=== PATIENT | female | born 1985 | race Caucasian/White ===

== ENCOUNTER 2016-05-27 18:49 | Emergency (ER) | payer SELFPAY ==
[2016-05-27 19:07] VITALS: BP 125/67
[2016-05-27] MEDS ORDERED: ACETAMINOPHEN 325 MG TABLET PO ONE (19:14)
[2016-05-27] MEDS ORDERED: ONDANSETRON 4 MG TAB.RAPDIS PO ONE (19:14)
--- NOTE | 2016-05-27 19:18 | ER Document Report ---
ED Medical Screen (RME) - General Chief Complaint: Fever Stated Complaint: FEVER,SORE THROAT,DIARRHEA Time seen by provider: 19:15 Mode of Arrival: Ambulatory Information source: Patient Notes: 30-year-old female developed sore throat fever nausea and diarrhea yesterday. She has exudative tonsillitis on triage exam. Temperature is 103 which I will treat with Tylenol. She took 800 mg ibuprofen at home 2:00 pm. TRAVEL OUTSIDE OF THE [place] IN LAST 30 DAYS: No - Related Data Allergies/Adverse Reactions: latex [Latex] Allergy (Verified 08/08/14 17:45) skin rash Past Medical History - Past Medical History Cardiac Medical History: Denies: Hx Coronary Artery Disease, Hx Heart Attack, Hx Hypertension Pulmonary Medical History: Denies: Hx Asthma, Hx Bronchitis, Hx COPD, Hx Pneumonia Neurological Medical History: Denies: Hx Cerebrovascular Accident, Hx Seizures Renal/ Medical History: Reports: Hx Ovarian Cysts Musculoskeltal Medical History: Denies Hx Arthritis Past Surgical History: Reports: Hx Section - Immunizations Hx Diphtheria, Pertussis, Tetanus Vaccination: Yes Physical Exam - Vital signs Vitals: Temp Pulse Resp BP Pulse Ox 103.0 F H 106 H 18 125/67 99 05/27/16 19:06 05/27/16 19:06 05/27/16 19:06 05/27/16 19:06 05/27/16 19:06 Course - Vital Signs Vital signs: Temp Pulse Resp BP Pulse Ox 103.0 F H 106 H 18 125/67 99 05/27/16 19:06 05/27/16 19:06 05/27/16 19:06 05/27/16 19:06 05/27/16 19:06
--- NOTE | 2016-05-27 20:06 | ER Document Report ---
HPI - HPI Patient complains to provider of: sore throat Onset: Yesterday Onset/Duration: Gradual Quality of pain: Achy Pain Level: 3 Context: Patient presents complaining of sore throat fever, nausea and diarrhea that started yesterday. Patient is concerned that she is dehydrated. Associated Symptoms: Diarrhea, Earache, Fever, Nausea, Sore throat. denies: Nonproductive cough, Vomiting Exacerbated by: Denies Relieved by: Denies Similar symptoms previously: No Recently seen / treated by doctor: No - ROS ROS below otherwise negative: Yes Systems Reviewed and Negative: Yes All other systems reviewed and negative - CONSTITUTIONAL Constitutional: REPORTS: Fever, Chills - EENT EENT: REPORTS: Sore Throat, Ear Pain - NEURO Neurology: DENIES: Headache - RESPIRATORY Respiratory: DENIES: Coughing - GASTROINTESTINAL Gastrointestinal: REPORTS: Nausea, Diarrhea. DENIES: Abdominal Pain, Patient vomiting - URINARY Urinary: DENIES: Dysuria - REPRODUCTIVE Reproductive: DENIES: : - MUSCULOSKELETAL Musculoskeletal: DENIES: Extremity pain, Back Pain - DERM Skin Color: Normal, [place] Skin Problems: None Past Medical History - General Information source: Patient - Social History Smoking Status: Never Smoker Frequency of alcohol use: None Drug Abuse: None Occupation: none Lives with: Family Family History: Reviewed & Not Pertinent Patient has suicidal ideation: No Patient has homicidal ideation: No - Past Medical History Cardiac Medical History: Denies: Hx Coronary Artery Disease, Hx Heart Attack, Hx Hypertension Pulmonary Medical History: Denies: Hx Asthma, Hx Bronchitis, Hx COPD, Hx Pneumonia Neurological Medical History: Denies: Hx Cerebrovascular Accident, Hx Seizures Renal/ Medical History: Reports: Hx Ovarian Cysts Musculoskeltal Medical History: Denies Hx Arthritis Past Surgical History: Reports: Hx Section - Immunizations Hx Diphtheria, Pertussis, Tetanus Vaccination: Yes Vertical Provider Document - CONSTITUTIONAL Agree With Documented VS: Yes Exam Limitations: No Limitations General Appearance: WD/WN, No Apparent Distress - INFECTION CONTROL TRAVEL OUTSIDE OF THE [place] IN LAST 30 DAYS: No - HEENT HEENT: Atraumatic, Normocephalic, Pharyngeal Exudate, Pharyngeal Tenderness, Pharyngeal Erythema. negative: Tympanic Membrane Red, Tympanic Membrane Bulging - NECK Neck: Lymphadenopathy-Left, Lymphadenopathy-Right - RESPIRATORY Respiratory: Breath Sounds Normal, No Respiratory Distress, Chest Non-Tender O2 Sat by Pulse Oximetry: 99 - CARDIOVASCULAR Cardiovascular: Regular Rate, Regular Rhythm, No Murmur - GI/ABDOMEN Gastrointestinal: Abdomen Soft, Abdomen Non-Tender - BACK Back: Normal Inspection. negative: CVA Tenderness-Right, CVA Tenderness-Left - MUSCULOSKELETAL/EXTREMETIES Musculoskeletal/Extremeties: MAEW - NEURO Level of Consciousness: Awake, Alert, Appropriate Motor/Sensory: No Motor Deficit - DERM Integumentary: Warm, Dry, No Rash Course - Vital Signs Vital signs: Temp Pulse Resp BP Pulse Ox 103.0 F H 106 H 18 125/67 99 05/27/16 19:06 05/27/16 19:06 05/27/16 19:06 05/27/16 19:06 05/27/16 19:06 Discharge - Discharge Clinical Impression: Tonsillitis, Nausea Fever Qualifiers: Fever type: unspecified Qualified Code(s): R50.9 - Fever, unspecified Condition: Stable Disposition: HOME, SELF-CARE Instructions: Tonsillitis ([facility]), Oral Narcotic Medication ([facility]), Fever ([facility]), Nausea or Vomiting, Nonspecific ([facility]), Antinausea Medication ([facility]), Penicillin V K ([facility]) Additional Instructions: Return immediately for any new or worsening symptoms Followup with your primary care provider, call tomorrow to make a followup appointment Prescriptions: Hydrocodone/Acetaminophen [[place] 5-325 Tablet] 1 each PO Q4 PRN #15 tablet PRN Reason: Ondansetron HCl [Zofran 4 mg Tablet] 1 - 2 tab PO Q6 PRN #15 tablet PRN Reason: Penicillin V Potassium [Penicillin Vk 500 mg Tablet] 500 mg PO BID #20 tablet Referrals: [facility] [Provider Group] - Follow up as needed
[2016-05-27 20:34] LABS: APPEARANCE,URINE CLEAR; BILIRUBIN,URINE NEGATIVE (NEGATIVE); GLUCOSE, URINE NEGATIVE (NEGATIVE); KETONES,URINE NEGATIVE (NEGATIVE); LEUKOCYTE ESTERASE,URINE NEGATIVE (NEGATIVE); NITRITE,URINE NEGATIVE (NEGATIVE); PROTEIN,URINE NEGATIVE (NEGATIVE); URINE SPECIFIC GRAVITY 1.008; UROBILINOGEN,URINE NEGATIVE mg/dL (<2.0)
== END 2016-05-27 21:05 | disposition home or self-care (01) ==
LOC: ER 18:49
DX: J03.90 Acute tonsillitis, unspecified (principal); R50.9 Fever, unspecified; R11.0 Nausea; R19.7 Diarrhea, unspecified
CPT/HCPCS: 99283; 81001; S0119

== ENCOUNTER 2017-02-24 18:22 | Emergency (ER) | payer MEDICAID ==
--- NOTE | 2017-02-24 19:53 | RADIOLOGY REPORT (SQ) ---
EXAM DESCRIPTION: HAND RIGHT 3 VIEWS COMPLETED DATE/TIME: 02/24/2017 7:38 pm REASON FOR STUDY: rt 3rd digit pain COMPARISON: None. EXAM PARAMETERS: NUMBER OF VIEWS: Three views. TECHNIQUE: AP, lateral and oblique radiographic images acquired of the right hand. LIMITATIONS: None. FINDINGS: MINERALIZATION: Normal. BONES: 1 mm bony density at the ulnar aspect of the middle phalanx at the 3rd PIP joint.No other frac ture or dislocation. No worrisome bone lesions. JOINTS: No effusions. SOFT TISSUES: Mild soft tissue swelling. No foreign body. OTHER: No other significant finding. IMPRESSION: 1 mm bony density at the ulnar aspect of the middle phalanx at the 3rd PIP joint. TECHNICAL DOCUMENTATION: JOB ID: [id number] [employer]- All Rights Reserved
--- NOTE | 2017-02-24 20:02 | ER Document Report ---
HPI - HPI Patient complains to provider of: Right middle finger injury Onset: Just prior to arrival Onset/Duration: Sudden Quality of pain: Throbbing Severity: Severe Pain Level: 5 Context: Patient states that a metal door closed on the end of her right middle finger this evening. Associated Symptoms: None Exacerbated by: Movement Relieved by: Denies Similar symptoms previously: No Recently seen / treated by doctor: No - ROS ROS below otherwise negative: Yes Systems Reviewed and Negative: Yes All other systems reviewed and negative - CONSTITUTIONAL Constitutional: DENIES: Fever - EENT EENT: DENIES: Congestion - NEURO Neurology: DENIES: Headache - CARDIOVASCULAR Cardiovascular: DENIES: Chest pain - RESPIRATORY Respiratory: DENIES: Trouble Breathing - GASTROINTESTINAL Gastrointestinal: DENIES: Abdominal Pain - REPRODUCTIVE Reproductive: DENIES: : - MUSCULOSKELETAL Musculoskeletal: REPORTS: Extremity pain - Distal right middle finger - DERM Skin Color: Normal Skin Problems: Abrasion Past Medical History - General Information source: Patient - Social History Smoking Status: Never Smoker Chew tobacco use (# tins/day): Yes Frequency of alcohol use: None Drug Abuse: None Lives with: Family Family History: Reviewed & Not Pertinent Renal/ Medical History: Reports: Hx Ovarian Cysts Past Surgical History: Reports: Hx Section, Hx Cholecystectomy - Immunizations Hx Diphtheria, Pertussis, Tetanus Vaccination: Yes Vertical Provider Document - CONSTITUTIONAL Agree With Documented VS: Yes Exam Limitations: No Limitations General Appearance: WD/WN, Mild Distress Notes: pt tearful. Offered motrin as she is driving, pt declined. - INFECTION CONTROL TRAVEL OUTSIDE OF THE [place] IN LAST 30 DAYS: No - HEENT HEENT: Atraumatic, Normocephalic - RESPIRATORY Respiratory: Breath Sounds Normal, No Respiratory Distress O2 Sat by Pulse Oximetry: 99 - CARDIOVASCULAR Cardiovascular: Regular Rate, Regular Rhythm - MUSCULOSKELETAL/EXTREMETIES Musculoskeletal/Extremeties: Tender, Edema - distal right middle finger. - NEURO Level of Consciousness: Awake, Alert, Appropriate - DERM Integumentary: Warm, Dry Notes: bruising noted to distal right finger. + crack in acrylic nail noted. Course - Vital Signs Vital signs: Temp Pulse Resp BP Pulse Ox 99.1 F 80 16 120/73 99 02/24/17 18:35 02/24/17 18:35 02/24/17 18:35 02/24/17 18:35 10/10/17 18:35 Procedures - Immobilization Finger Pre-Proc Neuro Vasc Exam: Normal Immobilizer type: Finger splint (Static) Performed by: PCT Post-Proc Neuro Vasc Exam: Normal Alignment checked and good: Yes Discharge - Discharge Clinical Impression: Crushing injury of right middle finger Qualifiers: Encounter type: initial encounter Qualified Code(s): S67.192A - Crushing injury of right middle finger, initial encounter Condition: Good Disposition: HOME, SELF-CARE Additional Instructions: ice and elevated motrin as needed for pain keep splint on for protection follow up with your PCP for incidental finding on xray of 1mm density to right 3rd finger return as needed Prescriptions: Hydrocodone/Acetaminophen [[place] 5-325 mg Tablet] 1 tab PO PRN PRN #15 tablet PRN Reason:
[2017-02-24 20:31] VITALS: BP 117/61
== END 2017-02-24 20:33 | disposition home or self-care (01) ==
LOC: ER 18:22
DX: S67.192A Crushing injury of right middle finger, initial encounter (principal); W23.0XXA Caught, crushed, jammed, or pinched between moving objects, initial encounter; Z90.49 Acquired absence of other specified parts of digestive tract
CPT/HCPCS: 99283

== ENCOUNTER 2017-06-07 22:42 | Emergency (ER) | payer MEDICAID ==
--- NOTE | 2017-06-07 23:07 | ER Document Report ---
ED Medical Screen (RME) - General Chief Complaint: Chest Pain Stated Complaint: CHEST PAIN Time Seen by Provider: 06/07/17 23:06 Notes: 31-year-old female, chief complaint of chest pain, pain is in the center of her chest feels like it goes around to her back. Symptoms started 40 minutes ago. She reports the pain feels sharp. She denies nausea, shortness of breath, or any other associated symptoms. She denies trauma. She is currently on her menstrual cycle. Denies any daily medications or medical history. Denies personal or family history of blood clot, denies recent travel, surgery, lower extremity swelling. TRAVEL OUTSIDE OF THE [place] IN LAST 30 DAYS: No - Related Data Allergies/Adverse Reactions: latex [Latex] Allergy (Verified 02/24/17 18:33) skin rash Past Medical History - Past Medical History Cardiac Medical History: Denies: Hx Heart Attack, Hx Hypertension Pulmonary Medical History: Denies: Hx Asthma, Hx Bronchitis, Hx COPD, Hx Pneumonia Neurological Medical History: Denies: Hx Seizures Renal/ Medical History: Reports: Hx Ovarian Cysts. Denies: Hx Peritoneal Dialysis Musculoskeltal Medical History: Denies Hx Arthritis Past Surgical History: Reports: Hx Section, Hx Cholecystectomy - Immunizations Hx Diphtheria, Pertussis, Tetanus Vaccination: Yes Physical Exam - Vital signs Vitals: Temp Pulse Resp BP Pulse Ox 98.0 F 73 20 133/72 H 97 06/07/17 22:54 06/07/17 22:54 06/07/17 22:54 06/07/17 22:54 06/07/17 22:54 - General General appearance: Appears well In distress: None - Respiratory Respiratory status: No respiratory distress Chest status: Tender - Reproducible specific sharp tenderness with palpation of both sides of the sternum Breath sounds: Normal. No: Decreased air movement, Wheezing Course - Vital Signs Vital signs: Temp Pulse Resp BP Pulse Ox 98.0 F 73 20 133/72 H 97 06/07/17 22:54 06/07/17 22:54 06/07/17 22:54 06/07/17 22:54 06/07/17 22:54
--- NOTE | 2017-06-08 00:16 | RADIOLOGY REPORT (SQ) ---
EXAM DESCRIPTION: CHEST PA/LAT CLINICAL HISTORY: 31 years, Female, chest pain COMPARISON: None. FINDINGS: Normal lung volume, clear parenchyma, normal cardiac silhouette, and intact bony thorax. IMPRESSION: No acute cardiopulmonary findings.
--- NOTE | 2017-06-08 00:22 | ER Document Report ---
ED General - General Chief Complaint: Chest Pain Stated Complaint: CHEST PAIN Time Seen by Provider: 06/07/17 23:06 Notes: Patient is a 31-year-old female without past medical history, no prior cardiac history, no history of DVT or pulmonary embolus, no use of estrogen who presents with an episode of chest pain that started prior to arrival and has since resolved. She describes it as a pressure-like sensation in the center of her chest that did not radiate. She denies any associated shortness of breath, nausea, vomiting or diaphoresis. She states the pain is now mostly resolved. Nothing seemed to improve or worsen the pain when it was present. No history of similar symptoms in the past. She has not seen her primary care doctor regarding this pain. She denies any trauma to the chest. TRAVEL OUTSIDE OF THE [place] IN LAST 30 DAYS: No - Related Data Allergies/Adverse Reactions: latex [Latex] Allergy (Verified 02/24/17 18:33) skin rash Past Medical History - General Information source: Patient - Social History Smoking Status: Never Smoker Frequency of alcohol use: None Drug Abuse: None Lives with: Spouse/Significant other Family History: Reviewed & Not Pertinent Patient has suicidal ideation: No Patient has homicidal ideation: No - Past Medical History Cardiac Medical History: Denies: Hx Heart Attack, Hx Hypertension Pulmonary Medical History: Denies: Hx Asthma, Hx Bronchitis, Hx COPD, Hx Pneumonia Neurological Medical History: Denies: Hx Seizures Renal/ Medical History: Reports: Hx Ovarian Cysts. Denies: Hx Peritoneal Dialysis Musculoskeltal Medical History: Denies Hx Arthritis Past Surgical History: Reports: Hx Section, Hx Cholecystectomy - Immunizations Hx Diphtheria, Pertussis, Tetanus Vaccination: Yes Review of Systems - Review of Systems Notes: Constitutional: Negative for fever. HENT: Negative for sore throat. Eyes: Negative for visual changes. Cardiovascular: Positive for chest pain. Respiratory: Negative for shortness of breath. Gastrointestinal: Negative for abdominal pain, vomiting or diarrhea. Genitourinary: Negative for dysuria. Musculoskeletal: Negative for back pain. Skin: Negative for rash. Neurological: Negative for headaches, weakness or numbness. 10 point ROS negative except as marked above and in HPI. Physical Exam - Vital signs Vitals: Temp Pulse Resp BP Pulse Ox 98.0 F 73 20 133/72 H 97 06/07/17 22:54 06/07/17 22:54 06/07/17 22:54 06/07/17 22:54 06/07/17 22:54 Interpretation: Normal Notes: PHYSICAL EXAMINATION: GENERAL: Well-appearing, well-nourished and in no acute distress. HEAD: Atraumatic, normocephalic. EYES: Pupils equal round and reactive to light, extraocular movements intact, sclera anicteric, conjunctiva are normal. ENT: nares patent, oropharynx clear without exudates. Moist mucous membranes. NECK: Normal range of motion, supple without lymphadenopathy LUNGS: Breath sounds clear to auscultation bilaterally and equal. No wheezes rales or rhonchi. Chest wall: Reproducible pain on palpation of the central chest HEART: Regular rate and rhythm without murmurs ABDOMEN: Soft, nontender, normoactive bowel sounds. No guarding, no rebound. No masses appreciated. EXTREMITIES: Normal range of motion, no pitting or edema. No cyanosis. NEUROLOGICAL: No focal neurological deficits. Moves all extremities spontaneously and on command. PSYCH: Normal mood, normal affect. SKIN: Warm, Dry, normal turgor, no rashes or lesions noted. Course - Re-evaluation Re-evalutation: 06/08/17 00:20 Presentation of chest pain in an otherwise well appearing patient. Low clinical suspicion for ACS given clinical history, exam, EKG without ST elevations or depressions. PE also seems unlikely given clinical history, absence of tachycardia or dyspnea. Patient is PERC criteria negative. CXR without evidence of pneumothorax or pneumonia. No widened mediastinum. Aortic dissection also seems unlikely given history, symmetric pulses, CXR, and vitals. Suspect likely musculoskeletal versus esophageal origin of her pain today. At this time will discharge with return precautions and follow-up recommendations. Verbal discharge instructions given a the bedside and opportunity for questions given. Medication warnings reviewed. Patient is in agreement with this plan and has verbalized understanding of return precautions and the need for primary care follow-up in the next 24-72 hours. - Vital Signs Vital signs: Temp Pulse Resp BP Pulse Ox 98.6 F 77 20 127/76 H 98 06/08/17 00:40 06/08/17 00:40 06/08/17 00:40 06/08/17 00:40 06/08/17 00:40 - Diagnostic Test Radiology reviewed: Image reviewed, Reports reviewed Radiology results interpreted by me: 06/08/17 00:20 Chest x-ray: No acute infiltrate or pneumothorax - EKG Interpretation by Me Additional EKG results interpreted by me: 06/08/17 00:20 Normal sinus rhythm. Rate 73. No ST elevations or depressions. QTC is 424. Discharge - Discharge Clinical Impression: Chest pain Qualifiers: Chest pain type: unspecified Qualified Code(s): R07.9 - Chest pain, unspecified Condition: Good Disposition: HOME, SELF-CARE Additional Instructions: You were seen today for chest pain. The exact cause of your pain is unclear. However, based on your chest x-ray and EKG it does not appear that it is from an immediately life-threatening cause at this time. Although your testing here is normal is critical that you follow-up with your primary care physician for continued evaluation of this chest pain. Please return to emergency department immediately if you have worsening of your chest pain, shortness of breath, vomiting, become unable to exert yourself due to pain or difficulty breathing, you pass out, or have any pain that radiates into your arms, jaw, or back. Please also return if you have any additional symptoms that are concerning to you. Referrals: RAQUEL BROWN MD [Primary Care Provider] - Follow up as needed
[2017-06-08 00:45] VITALS: BP 127/76
--- NOTE | 2017-06-08 08:51 | EKG REPORT ---
SEVERITY:- NORMAL ECG - SINUS RHYTHM : Confirmed by: Neeraj Gaines 08-Jun-2017 08:51:08
== END 2017-06-08 00:40 | disposition home or self-care (01) ==
LOC: ER 22:42
DX: R07.9 Chest pain, unspecified (principal); Z90.49 Acquired absence of other specified parts of digestive tract; Z91.040 Latex allergy status
CPT/HCPCS: 71046; 93005; 93010; 99285

== ENCOUNTER 2018-03-18 23:02 | Emergency (ER) | payer MEDICAID ==
--- NOTE | 2018-03-19 00:55 | ER Document Report ---
ED General - General Chief Complaint: Rib Pain Stated Complaint: SWELLING UNDER LEFT RIBS/PAIN Time Seen by Provider: 03/19/18 00:46 Notes: Patient is a 32-year-old female presents with complaint of left lower rib pain. Says started 2 days ago. Hurts when she takes deep breath. States he feels as if it is swollen over her ribs. No rash. No fevers. No trauma. No injuries. She does not smoke. She is on control. No leg pain or leg swelling. No recent long road trips or travel. No other complaints at this time. TRAVEL OUTSIDE OF THE [place] IN LAST 30 DAYS: No - Related Data Allergies/Adverse Reactions: latex [Latex] Allergy (Verified 02/24/17 18:33) skin rash Past Medical History - Social History Smoking Status: Never Smoker Frequency of alcohol use: None Drug Abuse: None Family History: Reviewed & Not Pertinent - Past Medical History Cardiac Medical History: Denies: Hx Heart Attack, Hx Hypertension Pulmonary Medical History: Denies: Hx Asthma, Hx Bronchitis, Hx COPD, Hx Pneumonia Neurological Medical History: Denies: Hx Seizures Renal/ Medical History: Reports: Hx Ovarian Cysts. Denies: Hx Peritoneal Dialysis Musculoskeletal Medical History: Denies Hx Arthritis Past Surgical History: Reports: Hx Section, Hx Cholecystectomy - Immunizations Hx Diphtheria, Pertussis, Tetanus Vaccination: Yes Review of Systems - Review of Systems Notes: My Normal Review Basic REVIEW OF SYSTEMS: CONSTITUTIONAL : Denies fever, chills, or sweats. Denies recent illness. EENT: Denies eye, ear, throat, or mouth pain or symptoms. Denies nasal or sinus congestion. RESPIRATORY: Denies cough, cold, or chest congestion. Denies shortness of breath, difficulty breathing, or wheezing. GASTROINTESTINAL: Denies abdominal pain. Denies nausea, vomiting, or diarrhea. Denies constipation. Last BM: MUSCULOSKELETAL: Pain over left lower ribs. SKIN: Denies rash or skin lesions. NEUROLOGICAL: Denies altered mental status or loss of consciousness. ALL OTHER SYSTEMS REVIEWED AND NEGATIVE. Physical Exam - Vital signs Vitals: Temp Pulse Resp BP Pulse Ox 97.7 F 76 16 127/48 H 98 03/18/18 23:10 03/18/18 23:10 03/18/18 23:10 03/18/18 23:10 03/18/18 23:10 - Notes Notes: General Appearance: Well nourished, alert, cooperative, no acute distress, moderate obvious discomfort. Vitals: reviewed, See vital signs table. Head: no swelling or tenderness to the head Eyes: PERRL, EOMI, Conjuctiva clear Neck: Supple, no neck tenderness, No thyromegaly Chest wall: Some pain palpation that is directly over the costochondral junction of the left lower ribs. No pain to palpation of the abdomen below it. There is very mild swelling over the costochondral junction. No redness. Lungs: No wheezing, No rales, No rhonci, No accessory muscle use, good air exchange bilaterally. Heart: Normal rate, Regular rythm, No murmur, no rub Abdomen: Normal BS, soft, No rigidity, No abdominal tenderness, No guarding, no rebound, no abdominal masses, no organomegaly Extremities: good pulses in all extremities, no swelling or tenderness in the extremities, no edema. Skin: warm, dry, appropriate color, no rash Neuro: speech clear, oriented x 3, normal affect, responds appropriately to questions. Course - Re-evaluation Re-evalutation: 03/19/18 08:59 Patient symptoms are distant with that of probable costochondritis. All her pain is located right at the costochondral junction of her left lower ribs. Pain is easily reducible palpation. I do not suspect PE and that the pain is easily reproduced with palpation, she is not tachypneic, she is not tachycardic , she does not have any risk factors for PE. Informed take Naprosyn as prescribed. I encouraged her to follow-up with a doctor in a week for reevaluation. I encouraged her return to ER if she has worsening pain or feels unwell. Patient agrees with plan and will be discharged home. Dictation of this chart was performed using voice recognition software; therefore, there may be some unintended grammatical errors. - Vital Signs Vital signs: Temp Pulse Resp BP Pulse Ox 98.0 F 66 18 105/57 L 99 03/19/18 02:50 03/19/18 02:50 03/19/18 02:50 03/19/18 02:50 03/19/18 02:50 Discharge - Discharge Clinical Impression: Rib pain on left side Condition: Good Disposition: HOME, SELF-CARE Additional Instructions: Please follow up with a doctor in 1 week for revaluation. Please take the Naprosyn with food to help with pain and inflammation. Do not take other NSAID medicaitons such as Aspirin, Motrin, Ibuprofen, Aleve, or Advil when taking Naprosyn. It is okay to take Tylenol. I suspect your pain is related to inflammation or slight tearing of the cartilage at your rib cartilage junction. This can take sometimes a few weeks to fully resolve. Please avoid exertional activities. Please return to the ER if you have coughing up blood, difficulty breathing, or worsening pain. Prescriptions: Naproxen [Naprosyn 250 mg Tablet] 250 mg PO BID #20 tablet Referrals: RAQUEL BROWN MD [[facility] STAFF] - Follow up in 3-5 days
--- NOTE | 2018-03-19 02:07 | RADIOLOGY REPORT (SQ) ---
EXAM DESCRIPTION: XR RIBS UNILATERAL WITH CHEST COMPLETED DATE/TME: 03/19/2018 00:51 CLINICAL HISTORY: 32 years, Female, left rib pain COMPARISON: Chest x-ray 06/08/2017 NUMBER OF VIEWS: 4 TECHNIQUE: AP chest and 3 views of the left RIBS LIMITATIONS: None. FINDINGS: The heart size is normal. Lungs are clear. Negative for left rib fracture. Soft tissues are unremarkable IMPRESSION: Negative exam 2010 [employer]- All Rights Reserved
[2018-03-19 03:22] VITALS: BP 105/57
== END 2018-03-19 02:50 | disposition home or self-care (01) ==
LOC: ER 23:02
DX: R07.81 Pleurodynia (principal); Z91.040 Latex allergy status; Z79.3 Long term (current) use of hormonal contraceptives; Z90.49 Acquired absence of other specified parts of digestive tract
CPT/HCPCS: 99283

== ENCOUNTER 2018-05-24 20:02 | Emergency (ER) | payer MEDICAID ==
[2018-05-24 23:17] LABS: APPEARANCE,URINE CLOUDY; BILIRUBIN,URINE NEGATIVE (NEGATIVE); COLOR,URINE STRAW; GLUCOSE, URINE NEGATIVE (NEGATIVE); KETONES,URINE NEGATIVE (NEGATIVE); LEUKOCYTE ESTERASE,URINE LARGE (NEGATIVE); NITRITE,URINE NEGATIVE (NEGATIVE); PROTEIN,URINE NEGATIVE (NEGATIVE); URINE SPECIFIC GRAVITY 1.003; UROBILINOGEN,URINE NEGATIVE mg/dL (<2.0)
[2018-05-25] MEDS ORDERED: POLYMYXIN B SULFATE/TMP OPH SOLN 10 ML OD ONE (00:15)
[2018-05-25] MEDS ORDERED: LIDOCAINE 1% INJ-PF (10 MG/ML) 30 ML SDV INJ ONE (00:15)
[2018-05-25] MEDS ORDERED: CEFTRIAXONE INJ 1000 MG VIAL IM ONE (00:15)
--- NOTE | 2018-05-25 00:18 | ER Document Report ---
ED General - General Chief Complaint: Foreign Body in Eye Stated Complaint: POSSIBLE UTI,COLD Time Seen by Provider: 05/24/18 23:40 Notes: Patient is a 32-year-old female that comes to the emergency department for multiple complaints. She states she has burning and pain with urination, she has been congested with runny nose and occasional cough for approximately 1 week, this is worsened and now she has bilateral ear pain which has become s evere over the past day. She also states that earlier today she started getting irritation in her right eye, watery drainage from the eye, redness of the eye, and a foreign body sensation. She denies visual loss. She wears glasses but no contacts. She denies fever. LMP within the past month. TRAVEL OUTSIDE OF THE [place] IN LAST 30 DAYS: No - Related Data Allergies/Adverse Reactions: latex [Latex] Allergy (Verified 02/24/17 18:33) skin rash Past Medical History - General Information source: Patient - Social History Smoking Status: Never Smoker Chew tobacco use (# tins/day): No Frequency of alcohol use: Occasional Drug Abuse: None Lives with: Family Family History: Reviewed & Not Pertinent Patient has suicidal ideation: No Patient has homicidal ideation: No - Past Medical History Cardiac Medical History: Denies: Hx Heart Attack, Hx Hypertension Pulmonary Medical History: Denies: Hx Asthma, Hx Bronchitis, Hx COPD, Hx Pneumonia Neurological Medical History: Denies: Hx Seizures Renal/ Medical History: Reports: Hx Ovarian Cysts. Denies: Hx Peritoneal Dialysis Musculoskeletal Medical History: Denies Hx Arthritis Past Surgical History: Reports: Hx Section, Hx Cholecystectomy - Immunizations Hx Diphtheria, Pertussis, Tetanus Vaccination: Yes Review of Systems - Review of Systems Constitutional: See HPI EENT: See HPI Cardiovascular: No symptoms reported Respiratory: See HPI Gastrointestinal: No symptoms reported Genitourinary: See HPI Female Genitourinary: No symptoms reported Musculoskeletal: No symptoms reported Skin: No symptoms reported Hematologic/Lymphatic: No symptoms reported Neurological/Psychological: No symptoms reported Physical Exam - Vital signs Vitals: Temp Pulse Resp BP Pulse Ox 98.4 F 71 18 122/66 99 05/24/18 20:13 05/24/18 20:13 05/24/18 20:13 05/24/18 20:13 05/24/18 20:13 - Notes Notes: GENERAL: Alert, interacts well. No acute distress. HEAD: Normocephalic, atraumatic. EYES: Pupils equal, round, and reactive to light. Extraocular movements intact. Right sclera is injected. Clear drainage. No superficial foreign body, no fluorescein uptake, negative Hanna sign. ENT: Oral mucosa moist, tongue midline. Oropharynx unremarkable. Airway patent. Congested nasal passages with mildly swollen turbinates, no nasal septal hematoma. Slightly erythematous left TM, right TM is dull, bulging, erythematous. Mastoids normal. Ear exam normal otherwise. NECK: Full range of motion. Supple. Trachea midline. LUNGS: Clear to auscultation bilaterally, no wheezes, rales, or rhonchi. No respiratory distress. HEART: Regular rate and rhythm. No murmur ABDOMEN: Soft, non-tender. Non-distended. Bowel sounds present in all 4 quadrants. GENITOURINARY: Deferred EXTREMITIES: Moves all 4 extremities spontaneously. No edema, normal radial and dorsalis pedis pulses bilaterally. No cyanosis. BACK: no cervical, thoracic, lumbar midline tenderness. No saddle anesthesia, normal distal neurovascular exam. NEUROLOGICAL: Alert and oriented x3. Normal speech. [cranial nerves II through XII grossly intact]. PSYCH: Normal affect, normal mood. SKIN: Warm, dry, normal turgor. No rashes or lesions noted. Course - Re-evaluation Re-evalutation: Examination of the eye does not show foreign body or concerning findings. Appears to be conjunctivitis. Probably viral. Patient was given Polytrim for this after discussion. Discussed expectations and follow-up for this. Remaining workup shows otitis media on the right side, she also has a urinary tract infection. test is negative. Patient is telling me now that she had fevers for the past 2 days but none today. She was given a shot of Rocephin. Urine was cultured. Because of dual infections she will be placed on Augmentin. Discussed use, follow-up, and return precautions in detail. Vital signs are unremarkable. Patient is nontoxic in appearance. Patient states understanding and agreement with plan. - Vital Signs Vital signs: Temp Pulse Resp BP Pulse Ox 97.8 F 99 20 108/59 L 97 05/25/18 01:05 05/25/18 01:05 05/25/18 01:05 05/25/18 01:05 05/25/18 01:05 - Laboratory Laboratory results interpreted by me: 05/24/18 22:55 Urine Blood LARGE H Ur Leukocyte Esterase LARGE H Discharge - Discharge Clinical Impression: Dysuria Otitis media Qualifiers: Otitis media type: suppurative Chronicity: acute Laterality: right Recurrence: not specified as recurrent Spontaneous tympanic membrane rupture: without spontaneous rupture Qualified Code(s): H66.001 - Acute suppurative otitis media without spontaneous rupture of ear drum, right ear Upper respiratory infection Qualifiers: URI type: unspecified URI Qualified Code(s): J06.9 - Acute upper respiratory infection, unspecified Conjunctivitis Qualifiers: Conjunctivitis type: acute Acute conjunctivitis type: bacterial Laterality: right Qualified Code(s): H10.31 - Unspecified acute conjunctivitis, right eye Disposition: HOME, SELF-CARE Additional Instructions: Your examination and testing shows urinary tract infection, right-sided ear infection, right-sided conjunctivitis (pinkeye). Take the Augmentin antibiotics as prescribed, I recommend a probiotic [id number] to avoid diarrhea with this. Use the Polytrim eyedrops (1 drop, 4 times daily for 5 days). This is quite likely viral and may just need to resolve with time. Take Tylenol or ibuprofen for chills. Follow-up with primary care. Return if you worsen including severe abdominal pain, vomiting, spiking fevers, loss of vision, severe swelling of the eye, or any other concerning or worsening symptoms. Prescriptions: Amox Tr/Potassium Clavulanate [Augmentin 875-125 Tablet] 1 tab PO BID 7 Days #14 tablet Forms: Return to Work Referrals: SHEREE GAYLE FNP [Primary Care Provider] - Follow up as needed
[2018-05-25] MEDS ORDERED: POLYMYXIN B SULFATE/TMP OPH SOLN 10 ML ONE (00:49)
[2018-05-25 01:06] VITALS: BP 108/59
== END 2018-05-25 01:29 | disposition home or self-care (01) ==
LOC: ER 20:02
DX: J06.9 Acute upper respiratory infection, unspecified (principal); H66.001 Acute suppurative otitis media without spontaneous rupture of ear drum, right ear; H92.03 Otalgia, bilateral; R30.0 Dysuria; Z91.040 Latex allergy status
CPT/HCPCS: 99283; 96372; 81025; 81001; J3490; J0696

== ENCOUNTER 2018-05-29 17:16 | Emergency (ER) | payer MEDICAID ==
[2018-05-29] MEDS ORDERED: MAG HYDROX/AL HYDROX/SIMETH SUSP 30 ML UDCUP PO ONE (17:31)
[2018-05-29] MEDS ORDERED: LIDOCAINE 2% VISCOUS SOLN 20 ML UDCUP PO ONE (17:31)
--- NOTE | 2018-05-29 17:36 | ER Document Report ---
ED Medical Screen (RME) - General Chief Complaint: Abdominal Pain Stated Complaint: ABDOMINAL PAIN, NAUSEA Time Seen by Provider: 05/29/18 17:27 Mode of Arrival: Ambulatory Information source: Patient, [facility] Records Notes: 32-year-old female patient complains of epigastric tenderness for the past 3 days with nausea. It is made worse when she eats. She was seen here 5 days ago with a urinary tract infection and upper respiratory tract infection symptoms. She was put on Augmentin at that time. She does have tenderness to palpate the epigastric region, no tenderness in right upper quadrant, she has had her gallbladder out in the past. TRAVEL OUTSIDE OF THE [place] IN LAST 30 DAYS: No - Related Data Allergies/Adverse Reactions: latex [Latex] Allergy (Verified 05/29/18 17:16) skin rash Past Medical History - General Information source: Patient, [facility] Records - Social History Cigarette use (# per day): No - Never smoker Chew tobacco use (# tins/day): No Frequency of alcohol use: Occasional Drug Abuse: None Occupation: Unemployed Lives with: Friend Family history: Reviewed & Not Pertinent Renal/ Medical History: Reports: Hx Ovarian Cysts Past Surgical History: Reports: Hx Section, Hx Cholecystectomy - 08/09/2014 - Immunizations Hx Diphtheria, Pertussis, Tetanus Vaccination: Yes Review of Systems - Review of Systems Constitutional: No symptoms reported EENT: No symptoms reported Cardiovascular: No symptoms reported Respiratory: Cough Gastrointestinal: See HPI, Abdominal pain, Nausea Genitourinary: No symptoms reported Female Genitourinary: No symptoms reported Musculoskeletal: No symptoms reported Skin: No symptoms reported Hematologic/Lymphatic: No symptoms reported Neurological/Psychological: No symptoms reported Physical Exam - Vital signs Vitals: Temp Pulse Resp BP Pulse Ox 98.6 F 79 16 142/64 H 98 05/29/18 17:20 05/29/18 17:20 05/29/18 17:20 05/29/18 17:20 05/29/18 17:20 Interpretation: Normal - General General appearance: Appears well, Alert In distress: None - HEENT Head: Normocephalic, Atraumatic Eyes: Normal Pupils: PERRL - Respiratory Respiratory status: No respiratory distress - Cardiovascular Rhythm: Regular - Abdominal Inspection: Normal Bowel sounds: Normal Tenderness: Tender - Epigastric tenderness, no tenderness in the right upper quadrant or left upper quadrant. - Back Back: Normal - Extremities General upper extremity: Normal inspection General lower extremity: Normal inspection - Neurological Neuro grossly intact: Yes - Psychological Associated symptoms: Normal affect, Normal mood - Skin Skin Temperature: Warm Skin Moisture: Dry Skin Color: Normal Course - Re-evaluation Re-evalutation: 05/29/18 19:08 Patient reports when she drank the GI cocktail, it made her throat and swallowing region numb, but it caused the epigastric pain to increase, and the pain has been increasing ever since. The patient's AST is 133, ALT 206. Alk phos is normal at 102, and bilirubin is normal at 0.5 The patient did have multiple small gallstones according to the operative report and had completely normal liver enzymes at the time of surgery 4 years ago. Patient denies any risk factors for hepatitis such as alcohol abuse, IV drug abuse, multiple sex partners. A right upper quadrant ultrasound will be done to look at the common bile duct size and make disposition decisions after the ultrasound. - Vital Signs Vital signs: Temp Pulse Resp BP Pulse Ox 98.6 F 79 16 142/64 H 98 05/29/18 17:20 05/29/18 17:20 05/29/18 17:20 05/29/18 17:20 05/29/18 17:20 - Laboratory Result Diagrams: 05/29/18 17:50 05/29/18 17:50 Laboratory results interpreted by me: 05/29/18 17:50 Glucose 74 L AST 133 H ALT 206 H - Diagnostic Test Radiology reviewed: Reports reviewed - Right upper quadrant ultrasound is unremarkable with normal caliber bile ducts. Doctor's Discharge - Discharge Clinical Impression: Epigastric abdominal pain, Elevated liver enzymes Condition: Stable Disposition: HOME, SELF-CARE Additional Instructions: Gastritis: You MAY have an inflammation of the stomach called gastritis. This commonly causes upper abdominal pain, nausea, and vomiting. In severe cases, bleeding of the stomach lining can occur. Gastritis can be caused by bacteria or viruses, alcohol, or stomach-irritating drugs. Begin with sips of clear liquids. Take increasing amounts of fluid over the first 24 hours. Then start small amounts of bland foods (such as dry toast, applesauce, mashed potato). Gradually resume your usual diet. You should take antacids every two hours until the pain has subsided. Acid-suppressing drugs may be prescribed as well. Avoid aspirin, caffeine, tobacco, and alcohol. If the abdominal pain worsens, or there is evidence of major bleeding in the stomach (such as black, tarry stool, bloody or black vomit, or lightheadedness), you should return immediately. Call the doctor if you aren't improved in 24 to 36 hours. Liver Function Abnormality: Your evaluation has shown an abnormality of your liver function. This may not be serious, but you need further testing. Abnormal liver function can be caused by alcohol, medicines, virus infections, heart failure, tumors, gallbladder problems, and many other diseases. But sometimes "abnormal" liver enzymes are "normal" -- it's just the way your liver works and there's nothing wrong. We need to be sure. If your doctor thinks the abnormal test was caused by alcohol, medicine, or a recent virus, we may just repeat the liver enzyme test later. Often, the test shows that the elevated enzymes are back to normal. Usually no treatment is necessary, except for avoiding the cause of the liver dysfunction (such as alcohol or a specific medicine). Further testing could include an ultrasound of the liver, liver scan, or perhaps a liver biopsy in difficult cases. Call the doctor if you become increasingly yellow, vomit repeatedly, begin to bruise or bleed easily, or have worsening abdominal pain. Take the pain medications as prescribed if needed. Eat a bland diet. Follow-up with your primary care provider on Thursday for a referral to a local service delivery manager. The names of the 2 gastroenterologists affiliated with this [facility] will be listed below. Prescriptions: Hydrocodone/Acetaminophen [[place] 5-325 mg Tablet] 1 tab PO Q4 PRN #12 tablet PRN Reason: Referrals: SHEREE GAYLE FNP [Primary Care Provider] - 05/31/18 SAVANNAH CERVANTES MD [ACTIVE STAFF] - Follow up as needed RICKY TANNER MD [ACTIVE STAFF] - Follow up as needed
[2018-05-29 18:17] LABS: ABSOLUTE BASOPHILS # (AUTO) 0.1 10^3/uL (0.0-0.2); ABSOLUTE EOSINOPHILS # (AUTO) 0.3 10^3/uL (0.0-0.6); ABSOLUTE LYMPHOCYTES (AUTO) 1.8 10^3/uL (0.5-4.7); ABSOLUTE MONOCYTES (AUTO) 0.8 10^3/uL (0.1-1.4); ABSOLUTE NEUT (AUTO) 6.1 10^3/uL (1.7-8.2); BASOPHILS % (AUTO) 0.9 % (0-2); EOSINOPHILS % (AUTO) 2.8 % (0-6); HEMATOCRIT 42.7 % (36.0-47.0); HEMOGLOBIN 14.7 g/dL (12.0-15.5); LYMPHOCYTES % (AUTO) 19.7 % (13-45); MEAN CORPUSCULAR HEMOGLOBIN 30.9 pg (27.0-33.4); MEAN CORPUSCULAR HGB CONC 34.4 g/dL (32.0-36.0); MEAN CORPUSCULAR VOLUME 90 fl (80-97); MONOCYTES % (AUTO) 8.6 % (3-13); PLATELET COUNT 312 10^3/uL (150-450); RED BLOOD COUNT 4.76 10^6/uL (3.72-5.28); RED CELL DISTRIBUTION WIDTH 13.3 % (11.5-14.0); TOTAL CELLS COUNTED % (AUTO) 100 %; WHITE BLOOD COUNT 8.9 10^3/uL (4.0-10.5)
[2018-05-29 18:22] LABS: APPEARANCE,URINE SLIGHTLY-CLOUDY; BILIRUBIN,URINE NEGATIVE (NEGATIVE); COLOR,URINE YELLOW; GLUCOSE, URINE NEGATIVE (NEGATIVE); KETONES,URINE NEGATIVE (NEGATIVE); LEUKOCYTE ESTERASE,URINE NEGATIVE (NEGATIVE); NITRITE,URINE NEGATIVE (NEGATIVE); PROTEIN,URINE NEGATIVE (NEGATIVE); URINE SPECIFIC GRAVITY 1.004; UROBILINOGEN,URINE NEGATIVE mg/dL (<2.0)
[2018-05-29 18:33] LABS: ALANINE AMINOTRANSFERASE 206 U/L (9-52); ALBUMIN 4.6 g/dL (3.5-5.0); ALKALINE PHOSPHATASE 102 U/L (38-126); ANION GAP 9 (5-19); ASPARTATE AMINO TRANSFERASE 133 U/L (14-36); BILIRUBIN,DIRECT 0.2 mg/dL (0.0-0.4); BILIRUBIN,TOTAL 0.5 mg/dL (0.2-1.3); BLOOD UREA NITROGEN 12 mg/dL (7-20); CALCIUM 9.6 mg/dL (8.4-10.2); CARBON DIOXIDE 28 mmol/L (22-30); CHLORIDE 103 mmol/L (98-107); GLUCOSE 74 mg/dL (75-110); LIPASE 91.1 U/L (23-300); POTASSIUM 4.2 mmol/L (3.6-5.0); SODIUM 140.2 mmol/L (137-145); TOTAL PROTEIN 7.4 g/dL (6.3-8.2)
[2018-05-29] MEDS ORDERED: FENTANYL CITRATE INJ/PF 100 MCG/2 ML AMPUL IM ONE (19:08)
--- NOTE | 2018-05-29 19:48 | RADIOLOGY REPORT (SQ) ---
EXAM DESCRIPTION: U/S ABDOMEN LIMITED W/O DOP COMPLETED DATE/TIME: 05/29/2018 7:38 pm REASON FOR STUDY: epigastric pain,elevated AST/ALT.S/P cholecystectomy COMPARISON: 08/08/2014 TECHNIQUE: Dynamic and static grayscale images acquired of the abdomen and recorded on PACS. Additio nal selected color Doppler and spectral images recorded. LIMITATIONS: None. FINDINGS: PANCREAS: No masses. Visualized pancreatic duct normal caliber. LIVER: No masses. Echotexture normal. LIVER VASCULATURE: Normal directional flow of the main portal vein and hepatic veins. GALLBLADDER: Surgically absent. ULTRASOUND-DETECTED JANSEN'S SIGN: Negative. INTRAHEPATIC DUCTS AND COMMON DUCT: CBD and intrahepatic ducts normal caliber. Common duct measures 6 mm. No filling defects. INFERIOR VENA CAVA: Obscured AORTA: No aneurysm. RIGHT KIDNEY: Normal size. Normal echogenicity. No solid or suspicious masses. No hydronephrosis. No calcifications. PERITONEAL AND RIGHT PLEURAL SPACE: No ascites or effusions. OTHER: No other significant findings. IMPRESSION: NORMAL RIGHT UPPER QUADRANT ULTRASOUND. TECHNICAL DOCUMENTATION: JOB ID: [id number] [employer]- All Rights Reserved Reading location - IP/workstation name: [email or web address]
[2018-05-29 20:00] VITALS: BP 123/71
== END 2018-05-29 19:59 | disposition home or self-care (01) ==
LOC: ER 17:16
DX: R10.13 Epigastric pain (principal); R74.8 Abnormal levels of other serum enzymes; R11.0 Nausea; R05 Cough
CPT/HCPCS: 99284; 96372; 36415; 83690; 85025; 80053; 81001; 76705; J3010; J3490 ×2